=== PATIENT | male | born 1960 | race Two or more races ===

== ENCOUNTER → 2017-04-18 | Emergency (ER) | payer OTHER ==
[~2017-04-18] VITALS: Ht 182.9 cm; Wt 122.5 kg
== END | disposition home or self-care (01) ==
LOC: ER 22:13
DX: S91.239A Puncture wound without foreign body of unspecified toe(s) with damage to nail, initial encounter (principal); W18.39XA Other fall on same level, initial encounter; Y93.89 Activity, other specified; Y92.89 Other specified places as the place of occurrence of the external cause; Y99.8 Other external cause status